=== PATIENT | male | born 1965 | race Two or more races ===

== ENCOUNTER 2022-06-24 11:16 | Inpatient (IN) | payer MEDICAID, OTHER ==
[~2022-06-24] VITALS: Ht 160 cm; Wt 71.5 kg
[2022-06-24] MEDS ORDERED: SODIUM CHLORIDE 0.9% 1,000 ML IV ONE (11:30)
[2022-06-24] MEDS ORDERED: ASPirin 81 mg TAB PO ONE (11:30)
[2022-06-24 11:40] LABS: Basophils # (auto) 0.1 10 ^3/uL (0-0.2); Basophils % (auto) 0.5 % (0.0-2.0); Eosinophils # (auto) 0 10 ^3/uL (0-0.8); Hemoglobin 15.4 g/dL (13.5-17.5); Lymphocytes # (auto) 0.6 10 ^3/uL (0.4-5.4); Lymphocytes % (auto) 5.5 % (10.0-50.0); Mean Corpuscular Hgb Conc. 33.6 g/dL (32.0-36.0); Mean Corpuscular Volume 89.5 fL (80.0-100.0); Monocytes # (auto) 0.3 10 ^3/uL (0-1.3); Monocytes % (auto) 3.4 % (0.0-12.0); Neutrophils # (auto) 9.2 10 ^3/uL (1.6-8.6); Neutrophils % (auto) 90.6 % (37.0-80.0); Red Blood Cells 5.14 10^6/uL (4.5-5.90); Red Cell Distribution Width 13.2 % (11.8-14.3); White Blood Cell 10.2 10^3/uL (4.4-10.8)
[2022-06-24 12:03] LABS: Albumin 3.4 g/dL (3.4-5.0); Calcium 8.7 mg/dL (8.5-10.1); Magnesium 1.8 mg/dL (1.6-2.6)
[2022-06-24 12:06] LABS: Total Protein 7.6 g/dL (6.4-8.2)
[2022-06-24 12:23] LABS: Potassium 2.7 mmol/L (3.5-5.1)
[2022-06-24] MEDS ORDERED: THIAMINE HCL 100 MG TAB PO ONE (13:15)
[2022-06-24] MEDS ORDERED: PANTOPRAZOLE 40 MG/10 ML VIAL INJ IV ONE (13:15)
[2022-06-24] MEDS ORDERED: MULTIPLE VITAMIN TAB PO ONE (13:15)
[2022-06-24] MEDS ORDERED: LORazepam 2MG/ML-1ML VIAL IV PRN (13:15)
[2022-06-24] MEDS ORDERED: FOLIC ACID 1 MG TAB PO ONE (13:15)
[2022-06-24] MEDS ORDERED: MORPHINE SULFATE INJ 2 MG/ml SYRG IV PRN (13:15)
[2022-06-24] MEDS ORDERED: FOLIC ACID 1 MG, MULTIPLE VITAMIN 10 ML, MAGNESIUM SULF SDV 50% 8 MEQ, THIAMINE INJ 100... INJ ONE ×5 (13:15)
[2022-06-24] MEDS: POTASSIUM CHL 20MEQ/100ML 100 ML IV SCH ×2 (13:48→16:02)
[2022-06-24] MEDS: SODIUM CHLORIDE 0.9% 1,000 ML IV SCH ×2 (13:48→21:15)
[2022-06-24 13:54] LABS: Magnesium 1.5 mg/dL (1.6-2.6)
[2022-06-24] MEDS ORDERED: ENOXAPARIN SOD 80 MG/0.8ML SYRINGE SC ONE (14:00)
[2022-06-24] MEDS: MAGNESIUM SULFATE 1GM/100ML 100 ML IV SCH ×2 (14:29→15:33)
[2022-06-24] MEDS ORDERED: POTASSIUM EFFERVESENT TAB 25 MEQ PO ONE (15:15)
[2022-06-24] MEDS: ACETAMINOPHEN 325 MG TAB PO PRN (20:16)
[2022-06-24] MEDS: ENOXAPARIN SOD 80 MG/0.8ML SYRINGE SC SCH (22:00)
[2022-06-25 05:00] VITALS: BP 114/65
[2022-06-25] MEDS: SODIUM CHLORIDE 0.9% 1,000 ML IV SCH ×3 (05:15→21:15)
[2022-06-25 05:37] LABS: Albumin 2.4 g/dL (3.4-5.0); Calcium 7.6 mg/dL (8.5-10.1); Magnesium 2.2 mg/dL (1.6-2.6); Potassium 3.7 mmol/L (3.5-5.1)
[2022-06-25 05:40] LABS: BUN/Creatinine Ratio 17.4 (10.0-20.0); Hematocrit 38.1 % (41.0-53.0); Hemoglobin 13.5 g/dL (13.5-17.5); Mean Corpuscular Hemoglobin 30.6 pg (28.0-32.0); Mean Corpuscular Hgb Conc. 35.3 g/dL (32.0-36.0); Mean Corpuscular Volume 86.8 fL (80.0-100.0); Red Blood Cells 4.39 10^6/uL (4.5-5.90); Red Cell Distribution Width 13.1 % (11.8-14.3); White Blood Cell 5.1 10^3/uL (4.4-10.8)
[2022-06-25 05:48] LABS: Basophils % (manual) 0 (0.0-2.0); Blast Cells 0; Eosinophils % (manual) 0 (0-7); Metamyelocytes % 0; Promyelocytes % 0; Reactive Lymphocytes 0
[2022-06-25 05:58] LABS: Bilirubin, Total 1.4 mg/dL (0.2-1.0); Total Protein 5.4 g/dL (6.4-8.2)
[2022-06-25 08:00] VITALS: BP 136/79
[2022-06-25 08:37] LABS: Band Neutrophils % (manual) 54; Lymphocytes % (manual) 18 (10.0-50.0); Monocytes % (manual) 4 (0-12); Myelocytes % 7
[2022-06-25 09:00] VITALS: BP 136/79
[2022-06-25] MEDS: FOLIC ACID 1 MG TAB PO SCH (09:49)
[2022-06-25] MEDS: THIAMINE HCL 100 MG TAB PO SCH (09:50)
[2022-06-25] MEDS: ASPirin 81 mg TAB PO SCH (09:51)
[2022-06-25] MEDS: ENOXAPARIN SOD 80 MG/0.8ML SYRINGE SC SCH ×2 (09:51→22:00)
[2022-06-25] MEDS: PANTOPRAZOLE 40 MG/10 ML VIAL INJ IV SCH (09:51)
[2022-06-25] MEDS: MULTIPLE VITAMIN TAB PO SCH (09:52)
[2022-06-25] MEDS: ACETAMINOPHEN 325 MG TAB PO PRN ×2 (16:19→20:52)
[2022-06-25 16:49] VITALS: BP 138/66
[2022-06-25 17:06] LABS: Urine Bacteria FEW /hpf (None Seen); Urine Blood Negative /uL (Negative); Urine WBC 1 /hpf (0 - 3)
[2022-06-25 17:21] LABS: Alcohol, Urine < 3.0 mg/dL (0-10); Barbiturate Scree,Urine NEGATIVE (NEGATIVE); Benzodiazephine Screen, Urine NEGATIVE (NEGATIVE); Cannabinoid Screen, Urine NEGATIVE (NEGATIVE); Cocaine Screen, Urine NEGATIVE (NEGATIVE)
[2022-06-25 17:30] LABS: Amphetamine Screen, Urine POSITIVE (NEGATIVE); Opiate Scree,Urine NEGATIVE (NEGATIVE); Phencyclidine Screen, Urine NEGATIVE (NEGATIVE)
[2022-06-25 20:00] VITALS: BP 110/63
[2022-06-25 22:00] VITALS: BP 110/63
[2022-06-26] MEDS: ACETAMINOPHEN 325 MG TAB PO PRN ×2 (04:16→15:39)
[2022-06-26 05:00] VITALS: BP 119/67
[2022-06-26] MEDS: SODIUM CHLORIDE 0.9% 1,000 ML IV SCH ×3 (05:05→21:15)
[2022-06-26 08:47] VITALS: BP 130/61
[2022-06-26] MEDS: ASPirin 81 mg TAB PO SCH (09:54)
[2022-06-26] MEDS: FOLIC ACID 1 MG TAB PO SCH (09:54)
[2022-06-26] MEDS: THIAMINE HCL 100 MG TAB PO SCH (09:54)
[2022-06-26] MEDS: PANTOPRAZOLE 40 MG/10 ML VIAL INJ IV SCH (09:55)
[2022-06-26] MEDS: ENOXAPARIN SOD 80 MG/0.8ML SYRINGE SC SCH (10:00)
[2022-06-26] MEDS: NITROGLYCERIN 0.4 MG SL TAB SL PRN ×2 (10:07→11:22)
[2022-06-26] MEDS: MULTIPLE VITAMIN TAB PO SCH (10:12)
[2022-06-26] MEDS ORDERED: cefTRIAXone 1GM/50ML D5W 50 ML IV ONE (10:45)
[2022-06-26] MEDS ORDERED: AZITHROMYCIN 500MG/ 250ML 250 ML IV ONE ×2 (10:45→11:30)
[2022-06-26] MEDS ORDERED: AZITHROMYCIN 250 MG TAB PO ONE (10:45)
[2022-06-26 12:26] VITALS: BP 121/70
[2022-06-26 16:54] VITALS: BP 144/78
[2022-06-26 20:00] VITALS: BP 130/73
[2022-06-26 22:00] VITALS: BP 119/65
[2022-06-27 05:00] VITALS: BP 127/67
[2022-06-27] MEDS: SODIUM CHLORIDE 0.9% 1,000 ML IV SCH ×2 (05:35→13:15)
[2022-06-27 08:00] VITALS: BP 114/65
[2022-06-27] MEDS ORDERED: cefTRIAXone 1GM/50ML D5W 50 ML IV SCH (09:00)
[2022-06-27 09:02] VITALS: BP 122/69
[2022-06-27] MEDS: PANTOPRAZOLE 40 MG/10 ML VIAL INJ IV SCH (09:44)
[2022-06-27] MEDS: FOLIC ACID 1 MG TAB PO SCH (09:44)
[2022-06-27] MEDS: ASPirin 81 mg TAB PO SCH (09:44)
[2022-06-27] MEDS: THIAMINE HCL 100 MG TAB PO SCH (09:44)
[2022-06-27] MEDS: MULTIPLE VITAMIN TAB PO SCH (09:45)
[2022-06-27] MEDS ORDERED: ENOXAPARIN SOD 40 MG/0.4 ML SYRINGE SC SCH (10:00)
[2022-06-27] MEDS ORDERED: AZITHROMYCIN 500MG/ 250ML 250 ML IV SCH ×2 (10:00)
[2022-06-27] MEDS ORDERED: AZITHROMYCIN 250 MG TAB PO SCH (10:00)
[2022-06-27] MEDS ORDERED: AZIT500T66 PO (10:12)
[2022-06-27] MEDS ORDERED: FOLI1TAB6 PO (10:12)
[2022-06-27] MEDS ORDERED: THIA100T5 PO (10:12)
[2022-06-27 13:37] VITALS: BP 114/65
[2022-06-27 13:44] VITALS: BP 114/65
== END 2022-06-27 15:59 | disposition home or self-care (01) | DRG 190 ==
LOC: ER 11:16 → TELE 13:13 → TELE-EAST 22:44
PROVIDERS: ADMIT Nurse Practitioner Family; ATTEND Family Medicine
DX: R07.89 Other chest pain (principal); I21.A1 Myocardial infarction type 2; J69.0 Pneumonitis due to inhalation of food and vomit; F10.120 Alcohol abuse with intoxication, uncomplicated; E66.01 Morbid (severe) obesity due to excess calories; Z68.27 Body mass index [BMI] 27.0-27.9, adult; E83.42 Hypomagnesemia; E87.6 Hypokalemia; F15.10 Other stimulant abuse, uncomplicated; R73.03 Prediabetes; Y90.6 Blood alcohol level of 120-199 mg/100 ml; Z20.822 Contact with and (suspected) exposure to COVID-19; F17.210 Nicotine dependence, cigarettes, uncomplicated; Z83.3 Family history of diabetes mellitus; Z71.41 Alcohol abuse counseling and surveillance of alcoholic; Z71.6 Tobacco abuse counseling
CPT/HCPCS: 36415; 71045; 80053; 80061; 80307; 80320; 81001; 83036; 83735; 83880; 84443; 84484; 85007; 85025; 85027; 87040; 87086; 87426; 93005; 93306; 96365; 96366; 96368; 96372; 96375; C9113; G0378; J0696; J3480